=== PATIENT | female | born 1940 | race Caucasian/White ===

== ENCOUNTER → 2018-01-01 | Outpatient (CLI) | payer MEDICARE, BC ==
--- NOTE | 2018-01-01 15:29 | US ---
EXAMINATION TYPE: US pelvis complete transvag DATE OF EXAM: 01/01/2018 COMPARISON: NONE CLINICAL HISTORY: N93.8 Other specified abnormal uterine and vaginal. pink discharge, pelvic pain, pa tient states during pelvic exam doctor saw blood TECHNIQUE: TA and TV Date of LMP: 25+yrs ago EXAM MEASUREMENTS: Uterus: 5.7 x 4.7 x 4.1 cm Endometrial Stripe: 1.2 cm Right Ovary: not seen Left Ovary: not seen 1. Uterus: Anteverted atrophic in size, fundal calcification seen 2. Endometrium: thickened, 0.4cm pocket of fluid seen within EMC, difficult to delineate whether 1.6 cm heterogeneous, shadowing lesion is within EMC versus adjacent is surrounding myometrium 3. Right Ovary: not seen due to atrophy and bowel gas 4. Left Ovary: not seen due to atrophy and bowel gas 5. Bilateral Adnexa: wnl 6. Posterior cul-de-sac: wnl Endometrium has central fluid with hyperechoic material on several of the images seen best on transva ginal study. On image [id number] there is hyperechoic area with shadowing impressing on endometrial canal. Suspect submucosal fibroid. Large endometrial polyp is felt less likely. No definitive suspicious thi ckening of endometrium is otherwise seen. IMPRESSION: Central fluid in endometrial canal. Probable some blood product. Hyperechoic area exterio r margin has indistinct margins from adjacent myometrium strongly favoring submucosal fibroid with lo rip mass effect. Pedunculated polyp left likely not excluded. No suspicious endometrial thickening is definitively seen to account for patient's symptoms.
== END | disposition home or self-care (01) ==
LOC: RADUSWWP 13:37
PROVIDERS: ATTEND Family Medicine
DX: D25.0 Submucous leiomyoma of uterus (principal)
CPT/HCPCS: 76830; 76856

== ENCOUNTER → 2018-07-16 | Outpatient (CLI) | payer MEDICARE, BC ==
[2018-07-16 10:49] LABS: Basophils # (A) 0.1 k/uL (0-0.2); Basophils % (A) 1 %; Eosinophils # (A) 0.3 k/uL (0-0.7); Eosinophils % (A) 4 %; HCT 46.3 % (34.0-46.0); HGB 14.1 gm/dL (11.4-16.0); Lymphocytes # (A) 1.9 k/uL (1.0-4.8); Lymphocytes % (A) 31 %; MCH 30.2 pg (25.0-35.0); MCHC 30.5 g/dL (31.0-37.0); Mean Platelet Volume 7.1; Monocytes # (A) 0.4 k/uL (0-1.0); Monocytes % (A) 6 %; Neutrophils # (A) 3.4 k/uL (1.3-7.7); Neutrophils % (A) 56 %; Platelet Count 275 k/uL (150-450); RBC 4.67 m/uL (3.80-5.40); RDW 12.9 % (11.5-15.5); WBC 6.1 k/uL (3.8-10.6)
[2018-07-16 10:59] LABS: Calcium 9.5 mg/dL (8.4-10.2); Magnesium 2.2 mg/dL (1.6-2.3); Phosphorus 4.6 mg/dL (2.5-4.5)
[2018-07-16 17:58] LABS: Iron Saturation 18.82 (12.00-45.00)
[2018-07-16 18:06] LABS: Vitamin D 25 Hydroxy 38.4 ng/mL (30.0-100.0)
[2018-07-16 18:10] LABS: Folate, Serum >24.0 ng/mL
[2018-07-16 20:05] LABS: Hemoglobin A1C 5.5 % (4.0-6.0)
== END | disposition home or self-care (01) ==
LOC: LABWHC1 10:13
PROVIDERS: ATTEND Family Medicine
DX: Z00.00 Encounter for general adult medical examination without abnormal findings (principal); E56.9 Vitamin deficiency, unspecified; R53.83 Other fatigue; D64.9 Anemia, unspecified
CPT/HCPCS: 36415; 80061; 82306; 82310; 82607; 82746; 83036; 83540; 83550; 83735; 84100; 84443; 85025

== ENCOUNTER → 2018-08-07 | Outpatient (CLI) | payer MEDICARE, BC ==
[2018-08-07 10:32] LABS: Basophils % (A) 0 %; Eosinophils # (A) 0.1 k/uL (0-0.7); Eosinophils % (A) 1 %; HCT 40.2 % (34.0-46.0); Lymphocytes # (A) 1.1 k/uL (1.0-4.8); Lymphocytes % (A) 11 %; MCH 31.4 pg (25.0-35.0); MCHC 32.2 g/dL (31.0-37.0); MCV 97.3 fL (80.0-100.0); Mean Platelet Volume 6.9; Monocytes # (A) 0.5 k/uL (0-1.0); Monocytes % (A) 5 %; Neutrophils # (A) 8.3 k/uL (1.3-7.7); Neutrophils % (A) 82 %; Platelet Count 309 k/uL (150-450); RBC 4.14 m/uL (3.80-5.40); RDW 12.3 % (11.5-15.5); WBC 10.2 k/uL (3.8-10.6)
[2018-08-07 11:38] LABS: Erythrocyte Sedimentation Rate 82 mm/hr (0-20)
[2018-08-07 11:50] LABS: Appearance,BF Cloudy; Color,BF Yellow
[2018-08-07 11:51] LABS: Nucleated Cells, Body Fluid 12160 /uL; RBC, Body Fluid 940 /uL
[2018-08-07 11:54] LABS: Mononuclear WBC,Body Fluid 8 %; Polynuclear WBC,Body Fluid 92 %; Total Cells Counted,Body Fluid 100
== END | disposition home or self-care (01) ==
LOC: LABWHC1 09:56
PROVIDERS: ATTEND Orthopaedic Surgery
DX: M25.561 Pain in right knee (principal); M25.461 Effusion, right knee; M11.261 Other chondrocalcinosis, right knee
CPT/HCPCS: 36415; 85025; 85652; 86140; 87070; 87075; 87205; 89050; 89060

== ENCOUNTER → 2018-08-11 | Outpatient (CLI) | payer MEDICARE, BC ==
--- NOTE | 2018-08-12 16:26 | BD ---
EXAMINATION TYPE: Axial Bone Density DATE OF EXAM: 08/11/2018 COMPARISON: NONE CLINICAL HISTORY: Height: 58.5 IN Weight: 100 LBS RISK FACTORS HISTORY OF: Active: YES Diet low in dairy products/other sources of calcium: YES Postmenopausal woman: AGE 52 MEDICATIONS: Additional Medications: VIT D3 EXAM MEASUREMENTS: Bone mineral densitometry was performed using the Watch Over Me System. Bone mineral density as measured about the Lumbar spine is: ----- L1-L4(G/cm2): 1.015 T Score Values are as follows: ----- L2: -1.5 ----- L3: -1.2 ----- L4: -0.9 ----- L1-L4: -1.4 Bone mineral density BASELINE Bone mineral density about the R hip (g/cm2): 0.762 Bone mineral density about the L hip (g/cm2): 0.819 T Score values are as follows: -----R Neck: -2.0 -----L Neck: -1.6 -----R Total: -1.7 -----L Total: -1.0 Bone mineral density BASELINE IMPRESSION: Osteopenia (T Score between -2.5 and -1). There is slightly increased risk of fracture and the patient may be considered for treatment. Re-Screen 2-5 years. NOTE: T-SCORE=SD OF THE YOUNG ADULT MEAN.
== END ==
LOC: RADBDWWP 14:57
PROVIDERS: ATTEND Family Medicine
DX: M85.80 Other specified disorders of bone density and structure, unspecified site (principal)
CPT/HCPCS: 77080

== ENCOUNTER → 2020-08-15 | Outpatient (CLI) | payer MEDICARE, BC ==
[2020-08-15 12:02] LABS: African American GFR (CKD) >90 (>60 ml/min/1.73 sqM); Blood Urea Nitrogen 17 mg/dL (7-17); Non-African American GFR(CKD) 82 (>60 ml/min/1.73 sqM)
--- NOTE | 2020-08-15 12:39 | CT ---
EXAMINATION TYPE: CT angio head DATE OF EXAM: 08/15/2020 COMPARISON: None HISTORY: Near syncope. Family history of cerebral aneurysm. CT DLP: 1764.8 mGycm Automated exposure control for dose reduction was used. CONTRAST: Performed without and with IV Contrast, patient injected with 100 mL of Isovue 370. FINDINGS: Nasal septal deviation noted. Mild generalized degenerative change of the greater frontal lobe compon ent. Faint low attenuation in the white matter is seen and is nonspecific but most typical remote isc hemic change. Right vertebral artery is dominant. Vertebrobasilar and carotid systems are patent. There is no sizab le aneurysm or vascular malformation craniocervical junction maintained. Sella turcica has a normal a ppearance. IMPRESSION: NO SIZABLE ANEURYSM
== END | disposition home or self-care (01) ==
LOC: RADCTMAIN 11:20
PROVIDERS: ATTEND Family Medicine
DX: R55 Syncope and collapse (principal); Z82.49 Family history of ischemic heart disease and other diseases of the circulatory system
CPT/HCPCS: 82565; 84520; 70496; 36415; Q9967

== ENCOUNTER → 2021-09-04 | Outpatient (CLI) | payer MEDICARE, BC ==
--- NOTE | 2021-09-05 08:15 | US ---
EXAMINATION TYPE: US pelvis complete transvag DATE OF EXAM: 09/04/2021 COMPARISON: NONE CLINICAL HISTORY: R10.2 Pelvic pain. TECHNIQUE: . Transabdominal sonographic images of the pelvis were acquired. Transvaginal sonographi c images were medically necessary to better assess the following anatomy: Endometrium Date of LMP: 25+ years ago EXAM MEASUREMENTS: Uterus: 6.1 x 2.5 x 3.7 cm Endometrial Stripe: 0.2 cm Right Ovary: 2.1 x 1.4 x 1.3 cm Left Ovary: 2.8 x 1.5 x 1.8 cm 1. Uterus: Anteverted Heterogeneous. Calcification noted. Echogenetic area visualized measuring 1. 4 x 1.0 x 1.4 cm, probable fibroid 2. Endometrium: wnl 3. Right Ovary: wnl 4. Left Ovary: wnl 5. Bilateral Adnexa: wnl 6. Posterior cul-de-sac: wnl IMPRESSION: 1. Uterine fibroid.
== END | disposition home or self-care (01) ==
LOC: RADUSWWP 16:44
PROVIDERS: ATTEND Family Medicine
DX: D25.9 Leiomyoma of uterus, unspecified (principal)
CPT/HCPCS: 76830; 76856